=== PATIENT | male | born 1975 ===

== ENCOUNTER → 2017-12-16 | Emergency (ER) | payer OTHER ==
[~2017-12-16] VITALS: Ht 177.8 cm; Wt 95.3 kg
[~2017-12-16] MED LIST: ADULT ASPIRIN81 MG; ENALAPRIL MALEA10 MG; SYNTHROID50 MCG
== END | disposition home or self-care (01) ==
LOC: ER 09:47
DX: K52.9 Noninfective gastroenteritis and colitis, unspecified (principal)